=== PATIENT | male | born 1995 | race Caucasian/White ===

== ENCOUNTER 2019-05-19 11:36 | Emergency (ER) | payer SELFPAY ==
[2019-05-19 11:41] VITALS: BP 122/66
--- NOTE | 2019-05-19 11:53 | ER Document Report ---
HPI - HPI Patient complains to provider of: sore throat Time Seen by Provider: 05/19/19 11:45 Onset: Other - 4-5 days Onset/Duration: Persistent Quality of pain: Achy Context: 24-year-old male presents to the emergency department with complaints of sore throat for the past 4 to 5 days. He is visiting from [place]. He is unaware if he has been exposed to strep. He reports he has been drinking tea which helps his throat feel better. Denies fever vomiting diarrhea. Patient speaking in a clear voice. Associated Symptoms: None Exacerbated by: Denies Relieved by: Denies Similar symptoms previously: No Recently seen / treated by doctor: No Past Medical History - General Information source: Patient - Social History Smoking Status: Unknown if Ever Smoked Cigarette use (# per day): No Frequency of alcohol use: None Drug Abuse: None Occupation: holiday formerly [employer] Lives with: Family Family History: None Patient has suicidal ideation: No Patient has homicidal ideation: No - Medical History Medical History: Negative Surgical Hx: Negative Vertical Provider Document - CONSTITUTIONAL Agree With Documented VS: Yes Exam Limitations: No Limitations General Appearance: WD/WN, No Apparent Distress - HEENT HEENT: Atraumatic, Normocephalic, PERRLA, Pharyngeal Erythema - Tonsillar hypertrophy, good airway clear voice opens mouth wide no trismus no Calvin's. negative: Conjuctival Injection, Pharyngeal Exudate, Tympanic Membrane Red - NECK Neck: Normal Inspection, Supple. negative: Lymphadenopathy-Left, Lymphadenopathy-Right - RESPIRATORY Respiratory: Breath Sounds Normal, No Respiratory Distress - CARDIOVASCULAR Cardiovascular: Regular Rate - MUSCULOSKELETAL/EXTREMETIES Musculoskeletal/Extremeties: LEILANI, FROM - NEURO Level of Consciousness: Awake, Alert, Appropriate Motor/Sensory: No Motor Deficit - DERM Integumentary: Warm, Dry Course - Re-evaluation Re-evalutation: 05/19/19 12:49 Patient presents emergency department with complaints of sore throat for the past 4 to 5 days. Strep test was negative. Patient instructed on throat culture pending. Instructed on warm salt water gargles push fluids follow-up with a primary care provider for recheck. Patient is visiting the area from [place] until May 25. He was instructed if pain is worse trouble swelling difficulty breathing to return to the emergency department immediately immediately. He verbalized understanding to all instructions. - Vital Signs Vital signs: Temp Pulse Resp BP Pulse Ox 98.1 F 86 20 122/66 97 05/19/19 11:39 05/19/19 11:39 05/19/19 11:39 05/19/19 11:39 05/19/19 11:39 Discharge - Discharge Clinical Impression: Sore throat Condition: Stable Disposition: HOME, SELF-CARE Instructions: Sore Throat (OM) Additional Instructions: *You have been evaluated for a sore throat, pharyngitis *Your strep test was negative. A throat culture is pending. You may be contacted in 3 to 4 days should you need antibiotics *In the meantime gargle with warm salt water and utilize throat lozenges for your comfort *Do not let anyone drink/eat after you *Good hand washing *Follow-up with a primary care provider within 1 week for recheck *Return to ED for worsening condition change, needs, unable to swallow difficulty breathing
== END 2019-05-19 12:52 | disposition home or self-care (01) ==
LOC: ER 11:36
DX: J02.9 Acute pharyngitis, unspecified (principal); J35.1 Hypertrophy of tonsils
CPT/HCPCS: 87070; 87880; 99283